=== PATIENT | male | born 1985 | race African-American/Black ===

== ENCOUNTER → 2017-12-11 | Outpatient (CLI) | payer SELFPAY | LOC: CARD 11:52 | PROVIDERS: ATTEND Nurse Practitioner Family | DX: R55 Syncope and collapse (principal); I07.1 Rheumatic tricuspid insufficiency | CPT/HCPCS: 93306 ==

== ENCOUNTER 2018-01-30 07:44 | Outpatient (CLI) | payer SELFPAY ==
[~2018-01-30] VITALS: Ht 175.3 cm; Wt 63.5 kg
[2018-01-30] VITALS (28 sets, daily range): BP systolic 100–116; BP diastolic 72–87
[2018-01-30] MEDS ORDERED: NS IV 1000 ML 1,000 ML ONE (07:50)
[2018-01-30] MEDS ORDERED: ATROPINE INJECTION 1 MG/10 ML SYR (ABBOTT) ONE (08:26)
[2018-01-30] MEDS ORDERED: NS IV 1000 ML 1,000 ML IV SCH (08:45)
--- NOTE | 2018-01-30 22:30 | OPERATIVE REPORT ---
DATE OF SERVICE: 01/30/2018 TILT TABLE STUDY ORDERING PHYSICIAN: Nieves Dale APRN. CLINICAL DIAGNOSIS: Syncope. Baseline blood pressure was obtained. The patient was attached to the cake wringer. Blood pressure was taken every minute. Heart rhythm and rate were monitored continuously. The patient began supine and the table was then tilted with the patient's head up at 70 degrees and was maintained in this position for 45 minutes. There was no significant drop in blood pressure or heart rate. He did tend to fall asleep during the procedure. However, there was no syncope. He did not report symptoms. CONCLUSIONS: 1. Tilt table study negative for neurocardiogenic syncope. 2. Narcolepsy may need to be evaluated for and he is advised to check with his family physician on that. Job ID: [id number] DocumentID: [id number] Dictated Date: 01/30/2018 16:48:50 [employer] Date: 01/30/2018 22:29:28 Dictated By: PEDRO MASON MD, MA, FACP, FACC,
== END 2018-01-30 09:38 | disposition home or self-care (01) ==
LOC: CARD 07:44
PROVIDERS: ATTEND Nurse Practitioner Family
DX: R55 Syncope and collapse (principal); R00.1 Bradycardia, unspecified
CPT/HCPCS: 93660